=== PATIENT | female | born 1985 | race Caucasian/White ===

== ENCOUNTER → 2021-03-04 | Outpatient (CLI) | payer BC ==
[~2021-03-04] MED LIST: FEOSOL325 MG PO; HUMULIN 70100 UNIT/1 SQ; LIPITOR TAB 2020 MG PO; LISINOPRIL-HCT1 EAC1 PO; PROTONIX 20 MG20 MG PO; VITAMIN C 500500 MG PO; VITAMIN D250000 UNIT PO; XIGDUO XR 5 MG1 EACH PO; ZANTAC150 MG PO
[2021-03-04 17:06] LABS: BUN/CREATININE RATIO 22 (0-10)
== END ==
LOC: LAB 16:00
PROVIDERS: Nurse Practitioner
DX: E11.8 Type 2 diabetes mellitus with unspecified complications (principal)
CPT/HCPCS: 80048; 80061; 82043; 82570; 82607; 84443

== ENCOUNTER → 2021-03-07 | Outpatient (CLI) | payer BC | LOC: RAD 16:41 | DX: M25.572 Pain in left ankle and joints of left foot (principal); M79.672 Pain in left foot; M19.072 Primary osteoarthritis, left ankle and foot | CPT/HCPCS: 73600; 73620 ==

== ENCOUNTER → 2022-05-11 | Outpatient (CLI) | payer BC ==
[2022-05-11 17:51] LABS: BUN/CREATININE RATIO 20 (0-10)
[2022-05-12 09:14] LABS: CREATININE, URINE 95.7 mg/dL (Not Estab.)
[2022-05-12 11:14] LABS: CHOLESTEROL, TOTAL 147 mg/dL (100-199); HDL CHOLESTEROL 29 mg/dL (>39); LDL CHOLESTEROL CALC 96 mg/dL (0-99); LDL/HDL RATIO 3.3 ratio (0.0-3.2); T. CHOL/HDL RATIO 5.1 ratio (0.0-4.4); TRIGLYCERIDES 122 mg/dL (0-149)
== END ==
LOC: LAB 10:23
PROVIDERS: Nurse Practitioner
DX: E11.8 Type 2 diabetes mellitus with unspecified complications (principal)
CPT/HCPCS: 36415; 80048; 80061; 82043; 82570; 82607; 84443